=== PATIENT | female | born 1995 | race Caucasian/White ===

== ENCOUNTER 2022-06-10 05:04 | Emergency (ER) | payer OTHER ==
[~2022-06-10] VITALS: Ht 167.6 cm; Wt 99.3 kg
[2022-06-10 05:50] LABS: BASO % 0.3 % (0.0-1.0); EOS # 0.2 10^3/uL (0.0-0.5); EOS % 1.7 % (0.0-3.0); HEMATOCRIT 32.1 % (36.0-47.0); HEMOGLOBIN 11.3 g/dl (12.0-15.5); LYMPH # 2.6 10^3/uL (1.5-5.0); LYMPH % 25.3 % (24.0-44.0); MEAN CORPUSCULAR HEMOGLOBIN 31.2 pg (27.0-33.0); MEAN CORPUSCULAR HGB CONC 35.2 g/dl (32.0-36.5); MEAN CORPUSCULAR VOLUME 88.7 fl (80.0-96.0); MONO # 0.6 10^3/uL (0.0-0.8); MONO % 5.8 % (2.0-8.0); NEUTROPHILS # 6.8 10^3/uL (1.5-8.5); NEUTROPHILS % 65.9 % (36.0-66.0); PLATELET COUNT, AUTOMATED 197 10^3/uL (150-450); RED BLOOD COUNT 3.62 10^6/uL (4.00-5.40); WHITE BLOOD COUNT 10.3 10^3/uL (4.0-10.0)
[2022-06-10 06:24] LABS: RSV AMPLIFICATION NEGATIVE (NEGATIVE)
[2022-06-10 06:34] LABS: BLOOD UREA NITROGEN 7 MG/DL (7-18); CALCIUM LEVEL 8.9 MG/DL (8.5-10.1); CARBON DIOXIDE LEVEL 19 MEQ/L (21-32); CHLORIDE LEVEL 106 MEQ/L (98-107); CREATININE FOR GFR 0.58 MG/DL (0.55-1.30); GLOMERULAR FILTRATION RATE > 60.0 (>60); GLUCOSE, FASTING 93 MG/DL (70-100); POTASSIUM SERUM 3.5 MEQ/L (3.5-5.1); SODIUM LEVEL 137 MEQ/L (136-145)
[2022-06-10 08:49] VITALS: BP 121/67
== END 2022-06-10 09:06 | disposition home or self-care (01) ==
LOC: EDBD 05:04 → M ED 05:04
DX: O99.413 Diseases of the circulatory system complicating pregnancy, third trimester (principal); R07.9 Chest pain, unspecified; Z3A.29 29 weeks gestation of pregnancy

== ENCOUNTER 2022-06-23 23:37 | Outpatient (CLI) | payer OTHER ==
[~2022-06-23] VITALS: Ht 170.2 cm; Wt 99.4 kg
[2022-06-23 23:55] VITALS: BP 123/84
[2022-06-24 00:59] LABS: HEMATOCRIT 32.1 % (36.0-47.0); MEAN CORPUSCULAR HEMOGLOBIN 30.8 pg (27.0-33.0); MEAN CORPUSCULAR HGB CONC 34.3 g/dl (32.0-36.5); MEAN CORPUSCULAR VOLUME 89.9 fl (80.0-96.0); PLATELET COUNT, AUTOMATED 182 10^3/uL (150-450); RED BLOOD COUNT 3.57 10^6/uL (4.00-5.40)
[2022-06-24 01:16] LABS: INR 1.09; PROTHROMBIN TIME 14.3 SECONDS (12.5-14.5)
[2022-06-24 01:17] LABS: PARTIAL THROMBOPLASTIN TIME 26.1 SECONDS (24.8-34.2)
[2022-06-24 04:17] LABS: GC DNA AMPLIFICATION NEGATIVE (NEGATIVE)
== END 2022-06-24 04:58 | disposition home or self-care (01) ==
LOC: M LDO 23:37
PROVIDERS: ATTEND Obstetrics & Gynecology
DX: O46.93 Antepartum hemorrhage, unspecified, third trimester (principal); Z3A.31 31 weeks gestation of pregnancy; Z91.040 Latex allergy status
CPT/HCPCS: 36415; 59025; 76811; 85027; 85384; 85610; 85730; 87661; 87810; 87850; G0463

== ENCOUNTER 2022-08-02 01:29 | Outpatient (CLI) | payer OTHER ==
[~2022-08-02] VITALS: Ht 170.2 cm; Wt 101.6 kg
[2022-08-02] MEDS ORDERED: PRENTAB9 PO (01:46)
[2022-08-02] MEDS ORDERED: ACET325C5 PO (01:46)
[2022-08-02] MEDS ORDERED: SYNT100T PO (01:46)
[2022-08-02 01:49] VITALS: BP 124/70
[2022-08-02] MEDS ORDERED: HOME MED LIST COMPLETE! XX SCH (01:50)
[2022-08-02] MEDS ORDERED: METOCLOPRAMIDE 10MG TAB PO ONE ×2 (03:00→05:30)
[2022-08-02] MEDS ORDERED: diphenhydrAMINE 25MG CAP PO ONE ×2 (03:00→05:30)
[2022-08-02 03:25] VITALS: BP 107/62
[2022-08-02] MEDS ORDERED: FIORICET TAB PO ONE (04:00)
[2022-08-02] MEDS ORDERED: FLUCONAZOLE 50MG TABLET PO ONE (05:00)
[2022-08-02 05:28] VITALS: BP 101/61
[2022-08-02] MEDS ORDERED: FOSFOMYCIN TROMETHAMINE 3 GM POWDER PACKET (MONUROL) PO ONE (06:00)
[2022-08-02 06:24] LABS: HEMATOCRIT 30.7 % (36.0-47.0); HEMOGLOBIN 10.6 g/dl (12.0-15.5); MEAN CORPUSCULAR HEMOGLOBIN 30.6 pg (27.0-33.0); MEAN CORPUSCULAR HGB CONC 34.5 g/dl (32.0-36.5); MEAN CORPUSCULAR VOLUME 88.7 fl (80.0-96.0); PLATELET COUNT, AUTOMATED 175 10^3/uL (150-450); RED BLOOD COUNT 3.46 10^6/uL (4.00-5.40); WHITE BLOOD COUNT 9.2 10^3/uL (4.0-10.0)
[2022-08-02 07:18] LABS: ALBUMIN 2.5 G/DL (3.2-5.2); ALKALINE PHOSPHATASE 131 U/L (46-116); ALT/SGPT < 9 U/L (7.0-40); AST/SGOT 16 U/L (<34); BILIRUBIN,TOTAL 0.3 MG/DL (0.3-1.2); BLOOD UREA NITROGEN 6 MG/DL (9-23); CALCIUM LEVEL 8.7 MG/DL (8.5-10.1); CARBON DIOXIDE LEVEL 21 MMOL/L (20-31); CHLORIDE LEVEL 106 MMOL/L (98-107); CREATININE FOR GFR 0.53 MG/DL (0.55-1.30); GLOMERULAR FILTRATION RATE > 60.0 (>60); GLUCOSE, FASTING 98 MG/DL (60-100); POTASSIUM SERUM 3.9 MMOL/L (3.5-5.1); SODIUM LEVEL 136 MMOL/L (136-145); TOTAL PROTEIN 5.6 G/DL (5.7-8.2)
[2022-08-02] MEDS ORDERED: ISOVUE-370 76% 100ML VIAL As Ordered ONE (07:30)
[2022-08-02 09:07] VITALS: BP 115/74
== END 2022-08-02 10:13 | disposition home or self-care (01) ==
LOC: M LDO 01:29
PROVIDERS: ATTEND Obstetrics & Gynecology
DX: O26.893 Other specified pregnancy related conditions, third trimester (principal); R51.9 Headache, unspecified; Z3A.36 36 weeks gestation of pregnancy; O23.43 Unspecified infection of urinary tract in pregnancy, third trimester; O99.283 Endocrine, nutritional and metabolic diseases complicating pregnancy, third trimester; E03.9 Hypothyroidism, unspecified; Z79.890 Hormone replacement therapy; Z91.040 Latex allergy status
CPT/HCPCS: 59025; 70470; 80053; 81000; 81015; 85027; 87086; G0463

== ENCOUNTER 2022-08-12 09:19 | Outpatient (CLI) | payer OTHER ==
[2022-08-12] VITALS (7 sets, daily range): BP systolic 108–125; BP diastolic 58–77
[~2022-08-12] VITALS: Ht 170.2 cm; Wt 101.4 kg
[~2022-08-12 09:19] MED LIST: ACET325C5 PO; PRENTAB9 PO; SYNT100T PO
[2022-08-12] MEDS ORDERED: HOME MED LIST COMPLETE! XX SCH (09:40)
[2022-08-12 10:41] LABS: HEMATOCRIT 33.5 % (36.0-47.0); HEMOGLOBIN 11.1 g/dl (12.0-15.5); MEAN CORPUSCULAR HEMOGLOBIN 30.5 pg (27.0-33.0); MEAN CORPUSCULAR HGB CONC 33.1 g/dl (32.0-36.5); PLATELET COUNT, AUTOMATED 176 10^3/uL (150-450); RED BLOOD COUNT 3.64 10^6/uL (4.00-5.40); WHITE BLOOD COUNT 8.3 10^3/uL (4.0-10.0)
[2022-08-12] MEDS ORDERED: diphenhydrAMINE 50MG CAP PO ONE (10:50)
[2022-08-12] MEDS ORDERED: METOCLOPRAMIDE 10MG TAB PO ONE (10:50)
[2022-08-12 11:08] LABS: URIC ACID 4.7 MG/DL (3.1-7.8)
[2022-08-12 11:11] LABS: ALBUMIN 2.6 G/DL (3.2-5.2); ALKALINE PHOSPHATASE 146 U/L (46-116); ALT/SGPT < 9 U/L (7.0-40); AST/SGOT 8 U/L (<34); BILIRUBIN,TOTAL 0.3 MG/DL (0.3-1.2); BLOOD UREA NITROGEN 7 MG/DL (9-23); CALCIUM LEVEL 9.1 MG/DL (8.5-10.1); CARBON DIOXIDE LEVEL 24 MMOL/L (20-31); CHLORIDE LEVEL 104 MMOL/L (98-107); CREATININE FOR GFR 0.63 MG/DL (0.55-1.30); GLOMERULAR FILTRATION RATE > 60.0 (>60); GLUCOSE, FASTING 98 MG/DL (60-100); POTASSIUM SERUM 3.9 MMOL/L (3.5-5.1); SODIUM LEVEL 137 MMOL/L (136-145); TOTAL PROTEIN 5.6 G/DL (5.7-8.2)
[2022-08-12 11:29] LABS: TOTAL PROTEIN,RANDOM URINE 24.6 MG/DL (0.0-14.0)
[2022-08-12 11:34] LABS: CREATININE,RANDOM URINE 129.1 MG/DL
[2022-08-12] MEDS ORDERED: ACETAMINOPHEN 500 MG TAB PO ONE (12:25)
[2022-08-14] MEDS ORDERED: BENA25CA4 PO (01:12)
[2022-08-14] MEDS ORDERED: ACET-907 PO (01:12)
== END 2022-08-12 14:38 | disposition home or self-care (01) ==
LOC: M LDO 09:19
PROVIDERS: ATTEND Registered Nurse
DX: O26.893 Other specified pregnancy related conditions, third trimester (principal); R51.9 Headache, unspecified; R80.9 Proteinuria, unspecified; R03.0 Elevated blood-pressure reading, without diagnosis of hypertension; Z3A.38 38 weeks gestation of pregnancy; Z91.040 Latex allergy status; Z79.890 Hormone replacement therapy
CPT/HCPCS: 36415; 59025; 80053; 82570; 84156; 84550; 85027; G0378; G0463

== ENCOUNTER 2022-08-13 16:43 | Outpatient (CLI) | payer OTHER ==
[~2022-08-13] VITALS: Ht 170.2 cm; Wt 100.5 kg
[2022-08-13 17:05] VITALS: BP 134/88
[2022-08-13] MEDS ORDERED: OXYTOCIN DRIP 30 UNITS in IV 1 EA IV SCH (17:45)
[2022-08-13] MEDS ORDERED: LR 1,000 ML IV SCH (17:45)
[2022-08-13 18:28] VITALS: BP 147/87
[2022-08-13 18:35] LABS: CREATININE, URINE 36.1 MG/DL
[2022-08-13 19:14] VITALS: BP 139/86
[2022-08-13 19:49] LABS: CREATININE 24 HOUR, URINE 902.5 MG/24HR (600-1800); TOTAL VOLUME, URINE 2500 ML
[2022-08-13 20:02] LABS: URINE TOTAL PROTEIN < 6.0 MG/DL (0-14)
[2022-08-14] MEDS ORDERED: BENA25CA4 PO (01:12)
[2022-08-14] MEDS ORDERED: ACET-907 PO (01:12)
== END 2022-08-13 19:23 | disposition home or self-care (01) ==
LOC: M LDO 16:43
PROVIDERS: ATTEND Obstetrics & Gynecology
DX: O47.1 False labor at or after 37 completed weeks of gestation (principal); Z3A.38 38 weeks gestation of pregnancy; O99.283 Endocrine, nutritional and metabolic diseases complicating pregnancy, third trimester; E03.9 Hypothyroidism, unspecified; O26.893 Other specified pregnancy related conditions, third trimester; R03.0 Elevated blood-pressure reading, without diagnosis of hypertension; Z91.040 Latex allergy status; Z79.890 Hormone replacement therapy
CPT/HCPCS: 59025; 81050; 82570; 84156; G0378; G0463

== ENCOUNTER → 2024-07-18 | Outpatient (REF) | payer OTHER ==
[~2024-07-18] MED LIST changes: +ACET-907 PO; +BENA25CA4 PO
== END ==
LOC: M SFHCDERM 07-03 13:15
PROVIDERS: ATTEND Nurse Practitioner Family
DX: D49.2 Neoplasm of unspecified behavior of bone, soft tissue, and skin (principal)